=== PATIENT | male | born 1975 | race African-American/Black ===

== ENCOUNTER 2019-05-02 16:19 | Emergency (ER) | payer OTHER ==
[~2019-05-02] VITALS: Ht 172.7 cm; Wt 93.0 kg
[2019-05-02 16:20] VITALS: BP 123/70
--- NOTE | 2019-05-02 16:54 | PHYS DOC ---
Past History Past Medical History: No Pertinent History Additional Past Surgical Histo: Ankle, Elbow Smoking: Non-smoker Alcohol Use: None Drug Use: None Adult General Chief Complaint Chief Complaint: KNEE INJURY HPI HPI Patient is a 43-year-old male presents to the ED for left knee pain. States that a week and a half ago while playing basketball, a friend fell on his extended knee "hyperextending it". Patient had initial pain and was seen at the urgent care where x-rays were done, but were negative for fractures. The patient reports that he is still having pain. Patient states he has been using ice and Motrin at home. Reports decreased swelling, but minimal resolution of the pain. Her main factors: Pain with lateral movement and significant weightbearing on the left side. Reports he ran a marathon a few months ago and noticed the pain. But never got it checked out. Patient is able to walk without crutches. Review of Systems Review of Systems Constitutional: Denies fever or chills Eyes: Denies redness or eye pain HENT: Denies nasal congestion or sore throat Respiratory: Denies cough or shortness of breath Cardiovascular: Denies chest pain or palpitations GI: Denies abdominal pain, nausea, or vomiting : Denies dysuria or hematuria Musculoskeletal: Denies back pain. Reports left knee pain. Integument: Denies rash or skin lesions Neurologic: Denies headache, focal weakness or sensory changes Complete systems were reviewed and found to be within normal limits, except as documented in this note. Physical Exam Physical Exam Constitutional: Well developed, well nourished, no acute distress, non-toxic appearance HENT: Normocephalic, atraumatic, oropharynx moist Eyes: Conjunctiva normal, no discharge Neck: Normal range of motion, no tenderness, supple Cardiovascular: Heart rate normal, regular rhythm Lungs & Thorax: Bilateral breath sounds clear to auscultation, no wheezing Skin: Warm, dry, no erythema, no rash Extremities: Left knee: Mild amount of edema, no erythema or ecchymosis, no bony deformity, mild tenderness with varus stress testing, negative anterior drawer/posterior drawer. Full range of motion. Neurologic: Alert and oriented X 3, no focal deficits noted Psychologic: Affect normal, judgement normal EKG EKG [] Radiology/Procedures Radiology/Procedures [] Course & Med Decision Making Course & Med Decision Making Patient presents to the ED for left knee pain following a hyperextension injury while playing basketball a week and half ago. History of "negative" x-ray at urgent care. More likely etiology to be meniscal or ligamentous in nature. ICE applied. ANGELA bandage applied. Crutches provided. Patient stable for discharge with outpatient follow-up with PCP/Orthopedics. Orthopedic referral provided. Discussed findings and plan with patient, who acknowledges understanding and agreement. Dragon Disclaimer Dragon Disclaimer This electronic medical record was generated, in whole or in part, using a voice recognition dictation system. Splinting Splinting : Location: Left knee Pre-Made Type: ANGELA bandage Pre-Proc Neuro Vasc Exam: normal Post-Proc Neuro Vasc Exam: normal, unchanged from pre-exam Departure Departure: Impression: Primary Impression: Knee pain, left Disposition: 01 HOME, SELF-CARE Condition: STABLE Referrals: PCP,TEENA (PCP) EUGENIE GONZALEZ MD Patient Instructions: Crutch Use, [id number], Knee Pain, [id number], Knee Wraps (Elastic Bandage) and RICE Additional Instructions: Use angela bandage or knee wrap as needed. May also take over the counter Ibuprofen as needed for pain. Scripts Hydrocodone Bit/Acetaminophen (NORCO 5-325 TABLET) 1 Each Tablet 0.5-1 TAB PO Q6HRS PRN for PAIN, #10 TAB Prov: JERAMIE REHMAN DO 05/02/19 Problem Qualifiers Primary Impression: Knee pain, left Chronicity: acute Qualified Codes: M25.562 - Pain in left knee JERAMIE REHMAN DO May 02, 2019 16:54
[2019-05-02] MEDS ORDERED: HYDR-3165 PO (16:58)
== END 2019-05-02 17:17 | disposition home or self-care (01) ==
LOC: ER 16:19
DX: M25.562 Pain in left knee (principal); W51.XXXA Accidental striking against or bumped into by another person, initial encounter; Y93.67 Activity, basketball; Y92.89 Other specified places as the place of occurrence of the external cause; Y99.8 Other external cause status
CPT/HCPCS: 99283